=== PATIENT | female | born 1950 | race Caucasian/White ===

== ENCOUNTER 2017-05-29 22:01 | Inpatient (IN) ==
[2017-05-29] MEDS ORDERED: ASPIRIN 325 MG TABLET PO STA (22:28)
[2017-05-29] MEDS ORDERED: MORPHINE 2 MG/1 ML SYRINGE IV STA (22:28)
[2017-05-29] MEDS ORDERED: ONDANSETRON 4 MG/2 ML VIAL IV STA (22:28)
[2017-05-29] MEDS ORDERED: FUROSEMIDE 100 MG/10 ML VIAL IV STA (22:28)
[2017-05-29] MEDS ORDERED: methylPREDNISolone SOD SUC 125 MG/2 ML VIAL IV STA (22:28)
[2017-05-29] MEDS ORDERED: ALBUTEROL 2.5 MG/3 ML NEB RESP TX SCH (22:30)
[2017-05-29] MEDS ORDERED: ONDANSETRON 4 MG/2 ML VIAL ONE (22:38)
[2017-05-29] MEDS ORDERED: methylPREDNISolone SOD SUC 125 MG/2 ML VIAL ONE (22:38)
[2017-05-29] MEDS ORDERED: ASPIRIN 325 MG TABLET ONE (22:38)
[2017-05-29] MEDS ORDERED: FUROSEMIDE 20 MG/2 ML VIAL ONE (22:38)
[2017-05-29] MEDS ORDERED: MORPHINE 2 MG/1 ML SYRINGE ONE (22:39)
[2017-05-29 22:44] LABS: Basophils # 0.1 10*3/uL (0.0-0.2); Basophils % 1.6 % (0.0-0.8); Eosinophils # 0.1 10*3/uL (0.0-0.87); Eosinophils % 1.1 % (0.00-10.9); Hematocrit 30.2 VOL% (35.7-47.0); Hemoglobin 8.3 GM/DL (12.0-16.0); Immature Granulocytes % 0.5 %; Immature Granulocytes Absolute 0.03 #; Lymphocytes # 1.6 10*3/uL (1.4-4.0); Lymphocytes % 27.4 % (21.3-54.2); Mean Corpuscular HGB Conc 27.5 GM/DL (32-36); Mean Corpuscular Hemoglobin 19 PG (27-34); Mean Corpuscular Volume 67.7 FL (87-102); Mean Platelet Volume 9.4 FL (9.6-12.0); Monocytes # 0.4 10*3/uL (0.11-0.8); Monocytes % 7.4 % (1.7-12.7); Neutrophils # 3.5 10*3/uL (1.4-7.4); Platelet Count 345 T/CUMM (130-400); Red Blood Count 4.46 MC/CUMM (3.8-5.5); Red Cell Distribution Width 19.5 % (9.3-17.3); White Blood Count 5.7 T/CUMM (4-12)
[2017-05-29 22:59] LABS: INR 0.9
[2017-05-29 23:02] LABS: Alanine Aminotransferase 11 U/L (13-56); Alkaline Phosphatase 87 U/L (45-117); Aspartate Amino Transferase 15 U/L (0-37); Bilirubin,Total < 0.39 MG/DL (0.2-1.0); Blood Urea Nitrogen 20 MG/DL (7-18); Calcium 8.6 MG/DL (8.5-10.1); Glucose 90 MG/DL (74-106); Osmolality,Calculated 283.3 MOS/KG (273-304); Potassium 3.2 MMOL/L (3.5-5.1); Sodium 141 MMOL/L (136-145); Total Protein 7.1 G/DL (6.4-8.3); Troponin I Only < 0.015 NG/ML (0.00-0.045)
[2017-05-29 23:05] LABS: Apearance,Urine CLEAR (Clear); Bilirubin,Urine Negative (Negative); Blood, Urine Negative (Negative); Glucose,Urine (UA) Negative (Negative); Ketones,Urine Negative (Negative); Mucus,Urine Occasional /LPF (Occasional); Nitrite,Urine Negative (Negative); Protein,Urine Negative; Urine Color Colorless (Yellow); Urine Specific Gravity 1.003 (1.001-1.035); Urine Urobilinogen < 2.0 EU/DL (0.2-1.0); WBC,Urine 1 /HPF (0-6)
[2017-05-29] MEDS: POTASSIUM CHLORIDE 20 MEQ TABLET PO STA (23:28)
[2017-05-29] MEDS ORDERED: POTASSIUM CHLORIDE 20 MEQ TABLET PO ONE (23:28)
[2017-05-29] MEDS ORDERED: POTASSIUM CHLORIDE 20 MEQ PACK ONE (23:38)
[2017-05-29] MEDS ORDERED: DILTIAZEM 100 MG VIAL.ADD IV ONE (23:43)
[2017-05-30] MEDS ORDERED: METOPROLOL TARTRATE 5 MG/5 ML VIAL IV ONE ×2 (00:02→00:37)
[2017-05-30] MEDS ORDERED: LORazepam 2 MG/1 ML VIAL ONE (00:02)
[2017-05-30] MEDS ORDERED: METOPROLOL TARTRATE 5 MG/5 ML VIAL IV STA ×2 (00:09→00:32)
[2017-05-30] MEDS: POTASSIUM CHLORIDE 20 MEQ TABLET PO STA (00:24)
[2017-05-30] MEDS ORDERED: ENOXAPARIN 100 MG/ML SYRINGE SUBCUT STA (00:27)
[2017-05-30] MEDS ORDERED: DILTIAZEM 50 MG/10 ML VIAL IV STA (00:28)
[2017-05-30] MEDS ORDERED: LORazepam 2 MG/1 ML VIAL IV STA (00:28)
[2017-05-30] MEDS ORDERED: DILTIAZEM INJ 100 MG in SODIUM CHLORIDE 0.9% 100 ML IV SCH (00:30)
[2017-05-30] MEDS ORDERED: PANTOPRAZOLE 40 MG VIAL IV STA (00:34)
[2017-05-30] MEDS ORDERED: ENOXAPARIN 80 MG/0.8 ML SYRINGE SUBCUT ONE (01:33)
[2017-05-30] MEDS ORDERED: PANTOPRAZOLE 40 MG VIAL IV ONE (01:33)
[2017-05-30] MEDS ORDERED: ALBUTEROL 2.5 MG/3 ML NEB RESP TX PRN (05:06)
[2017-05-30] MEDS ORDERED: MORPHINE 2 MG/1 ML SYRINGE IV PRN (05:06)
[2017-05-30] MEDS ORDERED: ONDANSETRON 4 MG/2 ML VIAL IV PRN (05:06)
[2017-05-30] MEDS ORDERED: SODIUM CHLORIDE 0.9% 1,000 ML IV SCH (05:06)
[2017-05-30 05:37] LABS: Barbiturates Screen,Urine Negative (Negative); Benzodiazepines Screen,Urine Negative (Negative); Cannabinoid Screen,Urine Negative (Negative); Opiate Screen,Urine Negative (Negative); Phencyclidine Screen,Urine Negative (Negative)
[2017-05-30 06:11] LABS: Risk Ratio 2.39; VLDL CHOLESTEROL 10.4 MG/DL
[2017-05-30] MEDS: LEVOTHYROXINE 175 MCG TABLET PO SCH ×2 (06:14→06:17)
[2017-05-30] MEDS ORDERED: LEVOTHYROXINE 100 MCG TABLET PO SCH (07:00)
[2017-05-30] MEDS ORDERED: POTASSIUM CHLORIDE 20 MEQ PACK PO SCH (09:00)
[2017-05-30] MEDS ORDERED: TOPIRAMATE 150 MG PO SCH (09:00)
[2017-05-30] MEDS ORDERED: LEVOTHYROXINE 175 MCG TABLET PO SCH ×2 (09:14→12:30)
[2017-05-30] MEDS ORDERED: POTASSIUM CHLORIDE 20 MEQ TABLET PO PRN (11:20)
[2017-05-30 11:59] LABS: Calcium 8.1 MG/DL (8.5-10.1); Osmolality,Calculated 286.1 MOS/KG (273-304); Potassium 3.8 MMOL/L (3.5-5.1)
[2017-05-30] MEDS: FOLIC ACID 1 MG TABLET PO SCH (12:22)
[2017-05-30] MEDS: DOCUSATE SODIUM 100 MG CAPSULE PO SCH ×2 (12:22→21:32)
[2017-05-30] MEDS: PANTOPRAZOLE 40 MG TABLET PO SCH (12:22)
[2017-05-30] MEDS: FUROSEMIDE 40 MG TABLET PO SCH (12:22)
[2017-05-30] MEDS: CYANOCOBALAMIN 500 MCG TABLET PO SCH (12:22)
[2017-05-30] MEDS: DICLOFENAC SODIUM 75 MG TABLET PO SCH ×2 (12:26→21:32)
[2017-05-30] MEDS: DILTIAZEM 60 MG TABLET PO SCH ×2 (12:26→21:32)
[2017-05-30] MEDS: ENOXAPARIN 80 MG/0.8 ML SYRINGE SUBCUT SCH ×2 (12:28→21:32)
[2017-05-30] MEDS ORDERED: METOPROLOL TARTRATE 25 MG TABLET PO ONE (15:31)
[2017-05-30] MEDS ORDERED: METOPROLOL TARTRATE 25 MG TABLET PO SCH (21:00)
[2017-05-30] MEDS: ASPIRIN EC 81 MG TABLET PO SCH (21:32)
[2017-05-30] MEDS: POTASSIUM CHLORIDE 20 MEQ PACK PO SCH (21:32)
[2017-05-30] MEDS: DIAZEPAM 5 MG TABLET PO SCH (21:32)
[2017-05-31 05:21] LABS: Basophils % 0.1 % (0.0-0.8); Hemoglobin 7.3 GM/DL (12.0-16.0); Immature Granulocytes % 0.4 %; Immature Granulocytes Absolute 0.03 #; Lymphocytes # 1.5 10*3/uL (1.4-4.0); Lymphocytes % 20.1 % (21.3-54.2); Mean Corpuscular HGB Conc 29.2 GM/DL (32-36); Mean Corpuscular Hemoglobin 19 PG (27-34); Mean Corpuscular Volume 64.8 FL (87-102); Mean Platelet Volume 9.7 FL (9.6-12.0); Monocytes # 0.5 10*3/uL (0.11-0.8); Monocytes % 6.9 % (1.7-12.7); Neutrophils # 5.2 10*3/uL (1.4-7.4); Neutrophils % 72.5 % (38.7-73.9); Platelet Count 377 T/CUMM (130-400); Red Blood Count 3.86 MC/CUMM (3.8-5.5); Red Cell Distribution Width 19.5 % (9.3-17.3); White Blood Count 7.2 T/CUMM (4-12)
[2017-05-31 05:36] LABS: % Iron Saturation 2.1 % (18-50); Calcium 8.4 MG/DL (8.5-10.1); Ferritin 2.3 ng/ml (8-252); Osmolality,Calculated 287.3 MOS/KG (273-304); Potassium 4.9 MMOL/L (3.5-5.1)
[2017-05-31 06:23] LABS: Folate 11.4 NG/ML (5.4-24.0); Vitamin B12 405 PG/ML (211-911)
[2017-05-31 06:24] LABS: Sedimentation Rate-Westergren 9 MM/HR (0-30)
[2017-05-31] MEDS ORDERED: LEVOTHYROXINE 175 MCG TABLET PO SCH (06:30)
[2017-05-31 06:46] LABS: Calcium 8.3 MG/DL (8.5-10.1); Osmolality,Calculated 285.4 MOS/KG (273-304); Potassium 4.9 MMOL/L (3.5-5.1)
[2017-05-31] MEDS ORDERED: METOPROLOL TARTRATE 25 MG TABLET PO SCH (08:13)
[2017-05-31] MEDS ORDERED: RIVAROXABAN 20 MG TABLET PO SCH (09:00)
[2017-05-31] MEDS: POTASSIUM CHLORIDE 20 MEQ PACK PO SCH ×2 (10:08→21:10)
[2017-05-31] MEDS: PANTOPRAZOLE 40 MG TABLET PO SCH (10:18)
[2017-05-31] MEDS: DICLOFENAC SODIUM 75 MG TABLET PO SCH ×2 (10:18→21:13)
[2017-05-31] MEDS: CYANOCOBALAMIN 500 MCG TABLET PO SCH (10:18)
[2017-05-31] MEDS: DOCUSATE SODIUM 100 MG CAPSULE PO SCH ×2 (10:18→21:10)
[2017-05-31] MEDS: FOLIC ACID 1 MG TABLET PO SCH (10:18)
[2017-05-31] MEDS: FUROSEMIDE 40 MG TABLET PO SCH (10:20)
[2017-05-31] MEDS: AMIODARONE 200 MG TABLET PO SCH (10:21)
[2017-05-31 10:26] LABS: Hemoglobin A1 (Alkaline) 97.9 % (96.5-98.5); Hemoglobin A2 (Alkaline) 2.1 % (1.5-3.5)
[2017-05-31] MEDS ORDERED: SODIUM CHLORIDE 0.9% 1,000 ML IV PRN (10:58)
[2017-05-31] MEDS ORDERED: SODIUM PHOSPHATE ENEMA 133 ML BOTTLE RECTAL PRN (12:24)
[2017-05-31] MEDS: DIAZEPAM 5 MG TABLET PO SCH (21:09)
[2017-05-31] MEDS: METOPROLOL TARTRATE 25 MG TABLET PO SCH (21:10)
[2017-05-31] MEDS: ASPIRIN EC 81 MG TABLET PO SCH (21:10)
[2017-06-01 06:07] LABS: Basophils # 0.1 10*3/uL (0.0-0.2); Basophils % 1.1 % (0.0-0.8); Eosinophils # 0.1 10*3/uL (0.0-0.87); Eosinophils % 1.1 % (0.00-10.9); Hematocrit 32.8 VOL% (35.7-47.0); Immature Granulocytes % 0.4 %; Immature Granulocytes Absolute 0.03 #; Lymphocytes # 1.8 10*3/uL (1.4-4.0); Lymphocytes % 25.7 % (21.3-54.2); Mean Corpuscular HGB Conc 29.3 GM/DL (32-36); Mean Corpuscular Hemoglobin 20 PG (27-34); Mean Corpuscular Volume 69.5 FL (87-102); Mean Platelet Volume 9.5 FL (9.6-12.0); Monocytes # 0.4 10*3/uL (0.11-0.8); Monocytes % 6.1 % (1.7-12.7); Neutrophils # 4.6 10*3/uL (1.4-7.4); Neutrophils % 65.6 % (38.7-73.9); Platelet Count 313 T/CUMM (130-400); Red Blood Count 4.72 MC/CUMM (3.8-5.5); Red Cell Distribution Width 21.2 % (9.3-17.3)
[2017-06-01 06:12] LABS: Hemoglobin 9.6 GM/DL (12.0-16.0)
[2017-06-01 06:51] LABS: Osmolality,Calculated 289.1 MOS/KG (273-304); Potassium 4.3 MMOL/L (3.5-5.1)
[2017-06-01] MEDS: LINACLOTIDE 145 MCG CAPSULE PO SCH (09:59)
[2017-06-01] MEDS: CYANOCOBALAMIN 500 MCG TABLET PO SCH (09:59)
[2017-06-01] MEDS: FUROSEMIDE 40 MG TABLET PO SCH (10:00)
[2017-06-01] MEDS: PANTOPRAZOLE 40 MG TABLET PO SCH (10:00)
[2017-06-01] MEDS: FOLIC ACID 1 MG TABLET PO SCH (10:00)
[2017-06-01] MEDS: AMIODARONE 200 MG TABLET PO SCH (10:00)
[2017-06-01] MEDS: METOPROLOL TARTRATE 25 MG TABLET PO SCH ×2 (10:00→21:22)
[2017-06-01] MEDS: DICLOFENAC SODIUM 75 MG TABLET PO SCH (10:00)
[2017-06-01] MEDS: DOCUSATE SODIUM 100 MG CAPSULE PO SCH ×2 (10:00→21:22)
[2017-06-01] MEDS: POTASSIUM CHLORIDE 20 MEQ PACK PO SCH ×2 (10:01→21:21)
[2017-06-01] MEDS: DIAZEPAM 5 MG TABLET PO SCH (21:21)
[2017-06-01] MEDS: ASPIRIN EC 81 MG TABLET PO SCH (21:22)
[2017-06-02 05:17] LABS: Basophils # 0.1 10*3/uL (0.0-0.2); Basophils % 0.8 % (0.0-0.8); Eosinophils # 0.3 10*3/uL (0.0-0.87); Eosinophils % 4.2 % (0.00-10.9); Hematocrit 33.4 VOL% (35.7-47.0); Immature Granulocytes % 0.3 %; Immature Granulocytes Absolute 0.02 #; Lymphocytes # 1.8 10*3/uL (1.4-4.0); Lymphocytes % 30.5 % (21.3-54.2); Mean Corpuscular HGB Conc 29.9 GM/DL (32-36); Mean Corpuscular Hemoglobin 21 PG (27-34); Mean Corpuscular Volume 68.7 FL (87-102); Mean Platelet Volume 9.6 FL (9.6-12.0); Monocytes # 0.5 10*3/uL (0.11-0.8); Monocytes % 8.6 % (1.7-12.7); Neutrophils # 3.3 10*3/uL (1.4-7.4); Neutrophils % 55.6 % (38.7-73.9); Platelet Count 303 T/CUMM (130-400); Red Blood Count 4.86 MC/CUMM (3.8-5.5); Red Cell Distribution Width 21.2 % (9.3-17.3); White Blood Count 5.9 T/CUMM (4-12)
[2017-06-02 05:50] LABS: Calcium 8.4 MG/DL (8.5-10.1); Osmolality,Calculated 287.1 MOS/KG (273-304); Potassium 4.8 MMOL/L (3.5-5.1)
[2017-06-02 05:51] LABS: Hypochromasia 1+; Microcytosis 2+
[2017-06-02 05:52] LABS: Ovalocytes Few; Platelet Estimate Normal
[2017-06-02 05:56] LABS: % Iron Saturation 4.5 % (18-50); Ferritin 3.6 ng/ml (8-252)
[2017-06-02 07:39] LABS: Folate 8.9 NG/ML (5.4-24.0); Vitamin B12 739 PG/ML (211-911)
[2017-06-02 08:07] LABS: Sedimentation Rate-Westergren 9 MM/HR (0-30)
[2017-06-02] MEDS: LINACLOTIDE 145 MCG CAPSULE PO SCH (08:30)
[2017-06-02] MEDS: FUROSEMIDE 40 MG TABLET PO SCH (08:30)
[2017-06-02] MEDS: PANTOPRAZOLE 40 MG TABLET PO SCH (08:31)
[2017-06-02] MEDS: CYANOCOBALAMIN 500 MCG TABLET PO SCH (08:31)
[2017-06-02] MEDS: AMIODARONE 200 MG TABLET PO SCH (08:32)
[2017-06-02] MEDS: METOPROLOL TARTRATE 25 MG TABLET PO SCH ×2 (08:32→21:55)
[2017-06-02] MEDS: DOCUSATE SODIUM 100 MG CAPSULE PO SCH ×2 (08:32→21:55)
[2017-06-02] MEDS: FOLIC ACID 1 MG TABLET PO SCH (08:32)
[2017-06-02] MEDS: POTASSIUM CHLORIDE 20 MEQ PACK PO SCH ×2 (08:35→21:55)
[2017-06-02] MEDS ORDERED: IRON SUCROSE 300 MG in SODIUM CHLORIDE 0.9% 100 ML IV ONE (15:00)
[2017-06-02] MEDS: DIAZEPAM 5 MG TABLET PO SCH (21:53)
[2017-06-02] MEDS: ASPIRIN EC 81 MG TABLET PO SCH (21:54)
[2017-06-03 06:16] LABS: Calcium 8.3 MG/DL (8.5-10.1); Osmolality,Calculated 286.1 MOS/KG (273-304); Potassium 4.1 MMOL/L (3.5-5.1)
[2017-06-03 06:24] LABS: Basophils # 0.1 10*3/uL (0.0-0.2); Basophils % 1.1 % (0.0-0.8); Eosinophils # 0.3 10*3/uL (0.0-0.87); Eosinophils % 4.5 % (0.00-10.9); Hematocrit 35.2 VOL% (35.7-47.0); Hemoglobin 10.3 GM/DL (12.0-16.0); Immature Granulocytes % 1.2 %; Immature Granulocytes Absolute 0.08 #; Lymphocytes # 1.7 10*3/uL (1.4-4.0); Lymphocytes % 26.7 % (21.3-54.2); Mean Corpuscular HGB Conc 29.3 GM/DL (32-36); Mean Corpuscular Hemoglobin 20 PG (27-34); Mean Corpuscular Volume 69.8 FL (87-102); Mean Platelet Volume 9.9 FL (9.6-12.0); Monocytes # 0.7 10*3/uL (0.11-0.8); Monocytes % 10.4 % (1.7-12.7); Neutrophils # 3.6 10*3/uL (1.4-7.4); Neutrophils % 56.1 % (38.7-73.9); Platelet Count 325 T/CUMM (130-400); Red Blood Count 5.04 MC/CUMM (3.8-5.5); Red Cell Distribution Width 21.5 % (9.3-17.3); White Blood Count 6.5 T/CUMM (4-12)
[2017-06-03] MEDS: LINACLOTIDE 145 MCG CAPSULE PO SCH (09:43)
[2017-06-03] MEDS: DOCUSATE SODIUM 100 MG CAPSULE PO SCH ×2 (09:43→21:25)
[2017-06-03] MEDS: METOPROLOL TARTRATE 25 MG TABLET PO SCH ×2 (09:44→21:26)
[2017-06-03] MEDS: FOLIC ACID 1 MG TABLET PO SCH (09:44)
[2017-06-03] MEDS: FUROSEMIDE 40 MG TABLET PO SCH (09:44)
[2017-06-03] MEDS: PANTOPRAZOLE 40 MG TABLET PO SCH (09:44)
[2017-06-03] MEDS: POTASSIUM CHLORIDE 20 MEQ PACK PO SCH ×2 (09:44→21:26)
[2017-06-03] MEDS: CYANOCOBALAMIN 500 MCG TABLET PO SCH (09:44)
[2017-06-03] MEDS: AMIODARONE 200 MG TABLET PO SCH (09:44)
[2017-06-03 10:23] LABS: Hemoglobin A1 (Alkaline) 97.7 % (96.5-98.5); Hemoglobin A2 (Alkaline) 2.3 % (1.5-3.5)
[2017-06-03] MEDS ORDERED: IRON SUCROSE 300 MG in SODIUM CHLORIDE 0.9% 100 ML IV ONE (17:00)
[2017-06-03] MEDS: DIAZEPAM 5 MG TABLET PO SCH (21:26)
[2017-06-03] MEDS: ASPIRIN EC 81 MG TABLET PO SCH (21:26)
[2017-06-04 05:15] LABS: Calcium 8.5 MG/DL (8.5-10.1); Potassium 4.5 MMOL/L (3.5-5.1)
[2017-06-04 05:29] LABS: Basophils # 0.1 10*3/uL (0.0-0.2); Basophils % 1.3 % (0.0-0.8); Eosinophils # 0.2 10*3/uL (0.0-0.87); Eosinophils % 3.5 % (0.00-10.9); Hematocrit 36.8 VOL% (35.7-47.0); Hemoglobin 10.5 GM/DL (12.0-16.0); Immature Granulocytes % 1.1 %; Immature Granulocytes Absolute 0.07 #; Lymphocytes # 1.8 10*3/uL (1.4-4.0); Lymphocytes % 29.3 % (21.3-54.2); Mean Corpuscular HGB Conc 28.5 GM/DL (32-36); Mean Corpuscular Hemoglobin 20 PG (27-34); Mean Corpuscular Volume 71.2 FL (87-102); Monocytes # 0.7 10*3/uL (0.11-0.8); Monocytes % 10.7 % (1.7-12.7); Neutrophils # 3.4 10*3/uL (1.4-7.4); Neutrophils % 54.1 % (38.7-73.9); Platelet Count 334 T/CUMM (130-400); Red Blood Count 5.17 MC/CUMM (3.8-5.5); Red Cell Distribution Width 21.6 % (9.3-17.3); White Blood Count 6.3 T/CUMM (4-12)
[2017-06-04 05:45] LABS: Hypochromasia 1+; Ovalocytes Slight; Platelet Estimate Adequate
[2017-06-04 05:46] LABS: Giant Platelets Few; Microcytosis Slight
[2017-06-04] MEDS: CYANOCOBALAMIN 500 MCG TABLET PO SCH (13:27)
[2017-06-04] MEDS: POTASSIUM CHLORIDE 20 MEQ PACK PO SCH ×2 (13:27→20:41)
[2017-06-04] MEDS: LINACLOTIDE 145 MCG CAPSULE PO SCH (13:27)
[2017-06-04] MEDS: DOCUSATE SODIUM 100 MG CAPSULE PO SCH ×2 (13:27→20:42)
[2017-06-04] MEDS: FUROSEMIDE 40 MG TABLET PO SCH (13:27)
[2017-06-04] MEDS: AMIODARONE 200 MG TABLET PO SCH (13:27)
[2017-06-04] MEDS: PANTOPRAZOLE 40 MG TABLET PO SCH (13:28)
[2017-06-04] MEDS: METOPROLOL TARTRATE 25 MG TABLET PO SCH ×2 (13:28→20:42)
[2017-06-04] MEDS: FOLIC ACID 1 MG TABLET PO SCH (13:28)
[2017-06-04] MEDS ORDERED: IRON SUCROSE 300 MG in SODIUM CHLORIDE 0.9% 100 ML IV ONE (17:00)
[2017-06-04] MEDS: DIAZEPAM 5 MG TABLET PO SCH (20:41)
[2017-06-04] MEDS: ASPIRIN EC 81 MG TABLET PO SCH (20:42)
[2017-06-05 06:44] LABS: Basophils # 0.1 10*3/uL (0.0-0.2); Basophils % 1.1 % (0.0-0.8); Calcium 8.4 MG/DL (8.5-10.1); Eosinophils # 0.2 10*3/uL (0.0-0.87); Eosinophils % 2.3 % (0.00-10.9); Hematocrit 35.5 VOL% (35.7-47.0); Immature Granulocytes % 1.5 %; Immature Granulocytes Absolute 0.11 #; Lymphocytes # 2.3 10*3/uL (1.4-4.0); Lymphocytes % 30.4 % (21.3-54.2); Mean Corpuscular HGB Conc 28.2 GM/DL (32-36); Mean Corpuscular Hemoglobin 20 PG (27-34); Mean Corpuscular Volume 71.3 FL (87-102); Monocytes # 0.8 10*3/uL (0.11-0.8); Monocytes % 10.7 % (1.7-12.7); Neutrophils # 4.1 10*3/uL (1.4-7.4); Osmolality,Calculated 287.1 MOS/KG (273-304); Platelet Count 289 T/CUMM (130-400); Potassium 4.1 MMOL/L (3.5-5.1); Red Blood Count 4.98 MC/CUMM (3.8-5.5); Red Cell Distribution Width 22.1 % (9.3-17.3); White Blood Count 7.5 T/CUMM (4-12)
[2017-06-05 06:46] LABS: Elliptocytes Few
[2017-06-05 06:47] LABS: Hypochromasia 1+; Microcytosis 1+; Platelet Estimate Normal; Spherocytes Few
[2017-06-05] MEDS: LINACLOTIDE 145 MCG CAPSULE PO SCH (09:06)
[2017-06-05] MEDS: PANTOPRAZOLE 40 MG TABLET PO SCH (09:07)
[2017-06-05] MEDS: CYANOCOBALAMIN 500 MCG TABLET PO SCH (09:07)
[2017-06-05] MEDS: AMIODARONE 200 MG TABLET PO SCH (09:08)
[2017-06-05] MEDS: METOPROLOL TARTRATE 25 MG TABLET PO SCH ×2 (09:08→21:16)
[2017-06-05] MEDS: FUROSEMIDE 40 MG TABLET PO SCH (09:09)
[2017-06-05] MEDS: FOLIC ACID 1 MG TABLET PO SCH (09:09)
[2017-06-05] MEDS: DOCUSATE SODIUM 100 MG CAPSULE PO SCH ×2 (09:09→21:16)
[2017-06-05] MEDS: POTASSIUM CHLORIDE 20 MEQ PACK PO SCH ×2 (09:09→21:15)
[2017-06-05] MEDS ORDERED: BISACODYL 5 MG TABLET PO ONE (10:26)
[2017-06-05] MEDS ORDERED: PROPOFOL 200 MG/20 ML VIAL IV ONE (11:11)
[2017-06-05] MEDS ORDERED: LIDOCAINE 2% 5 ML VIAL ONE (11:11)
[2017-06-05] MEDS ORDERED: POLYETHYLENE GLYCOL POWDER 255 GM BOTTLE PO ONE (12:00)
[2017-06-05] MEDS: ASPIRIN EC 81 MG TABLET PO SCH (21:16)
[2017-06-05] MEDS: DIAZEPAM 5 MG TABLET PO SCH (21:17)
[2017-06-06] MEDS ORDERED: MAGNESIUM CITRATE 300 ML BOTTLE PO ONE (05:00)
[2017-06-06] MEDS ORDERED: POLYETHYLENE GLYCOL POWDER 255 GM BOTTLE PO ONE (11:53)
[2017-06-06] MEDS: LINACLOTIDE 145 MCG CAPSULE PO SCH (13:02)
[2017-06-06] MEDS: FOLIC ACID 1 MG TABLET PO SCH (13:02)
[2017-06-06] MEDS: AMIODARONE 200 MG TABLET PO SCH (13:02)
[2017-06-06] MEDS: CYANOCOBALAMIN 500 MCG TABLET PO SCH (13:03)
[2017-06-06] MEDS: FUROSEMIDE 40 MG TABLET PO SCH (13:04)
[2017-06-06] MEDS: PANTOPRAZOLE 40 MG TABLET PO SCH (13:04)
[2017-06-06] MEDS: DOCUSATE SODIUM 100 MG CAPSULE PO SCH ×2 (13:05→22:17)
[2017-06-06] MEDS: METOPROLOL TARTRATE 25 MG TABLET PO SCH ×2 (13:05→22:17)
[2017-06-06] MEDS: POTASSIUM CHLORIDE 20 MEQ PACK PO SCH ×2 (13:08→22:16)
[2017-06-06] MEDS: DIAZEPAM 5 MG TABLET PO SCH (22:17)
[2017-06-06] MEDS: ASPIRIN EC 81 MG TABLET PO SCH (22:17)
[2017-06-06] MEDS ORDERED: ACETAMINOPHEN 325 MG TABLET PO PRN (23:04)
[2017-06-07] MEDS ORDERED: LIDOCAINE 2% 5 ML VIAL ONE (12:43)
[2017-06-07] MEDS ORDERED: PROPOFOL 200 MG/20 ML VIAL IV ONE (12:43)
[2017-06-07] MEDS: CYANOCOBALAMIN 500 MCG TABLET PO SCH (14:04)
[2017-06-07] MEDS: POTASSIUM CHLORIDE 20 MEQ PACK PO SCH (14:04)
[2017-06-07] MEDS: AMIODARONE 200 MG TABLET PO SCH (14:04)
[2017-06-07] MEDS: PANTOPRAZOLE 40 MG TABLET PO SCH (14:04)
[2017-06-07] MEDS: FOLIC ACID 1 MG TABLET PO SCH (14:05)
[2017-06-07] MEDS: METOPROLOL TARTRATE 25 MG TABLET PO SCH (14:06)
[2017-06-07] MEDS: FUROSEMIDE 40 MG TABLET PO SCH (14:06)
[2017-06-07] MEDS: DOCUSATE SODIUM 100 MG CAPSULE PO SCH (14:06)
[2017-06-07] MEDS: LINACLOTIDE 145 MCG CAPSULE PO SCH (14:06)
[2017-06-07 17:12] VITALS: BP 140/80
[2017-06-08] MEDS ORDERED: LEVOTHYROXINE 100 MCG TABLET PO SCH (06:30)
== END 2017-06-07 15:13 | disposition home or self-care (01) | DRG 310 ==
LOC: EDUNIT# → N.ED 22:01 → N.EDINP 05-30 01:59 → N.TELEN 05-30 03:46
PROVIDERS: ADMIT Hospitalist; ATTEND Hospitalist

== ENCOUNTER 2018-04-12 17:44 | Inpatient (IN) ==
[2018-04-12] MEDS ORDERED: DILTIAZEM 50 MG/10 ML VIAL IV STA (18:41)
[2018-04-12] MEDS ORDERED: DILTIAZEM 25 MG/5 ML VIAL IV ONE (18:45)
[2018-04-12 18:53] LABS: Basophils # 0.1 10*3/uL (0.0-0.2); Basophils % 1.3 % (0.0-0.8); Eosinophils # 0.1 10*3/uL (0.0-0.87); Eosinophils % 1.1 % (0.00-10.9); Hematocrit 41.6 VOL% (35.7-47.0); Hemoglobin 13.1 GM/DL (12.0-16.0); Immature Granulocytes % 0.5 %; Immature Granulocytes Absolute 0.03 #; Lymphocytes # 1.4 10*3/uL (1.4-4.0); Lymphocytes % 23.3 % (21.3-54.2); Mean Corpuscular HGB Conc 31.5 GM/DL (32-36); Mean Corpuscular Hemoglobin 28 PG (27-34); Mean Corpuscular Volume 87.9 FL (87-102); Mean Platelet Volume 9.8 FL (9.6-12.0); Monocytes # 0.4 10*3/uL (0.11-0.8); Monocytes % 6.4 % (1.7-12.7); Neutrophils # 4.1 10*3/uL (1.4-7.4); Neutrophils % 67.4 % (38.7-73.9); Platelet Count 255 T/CUMM (130-400); Red Blood Count 4.73 MC/CUMM (3.8-5.5); Red Cell Distribution Width 13.6 % (9.3-17.3); White Blood Count 6.1 T/CUMM (4-12)
[2018-04-12] MEDS ORDERED: DILTIAZEM INJ 100 MG in SODIUM CHLORIDE 0.9% 100 ML IV SCH (19:00)
[2018-04-12] MEDS ORDERED: ASPIRIN 325 MG TABLET PO STA (19:02)
[2018-04-12] MEDS ORDERED: dilTIAZem Drip 125 MG/125 ML PREMIX IV ONE (19:05)
[2018-04-12 19:12] LABS: Alanine Aminotransferase 15 U/L (13-56); Albumin 3.7 G/DL (3.4-5.0); Alkaline Phosphatase 100 U/L (45-117); Aspartate Amino Transferase 13 U/L (0-37); Blood Urea Nitrogen 22 MG/DL (7-18); Calcium 8.5 MG/DL (8.5-10.1); Glucose 119 MG/DL (74-106); Osmolality,Calculated 284.3 MOS/KG (273-304); Potassium 3.6 MMOL/L (3.5-5.1); Sodium 141 MMOL/L (136-145); Troponin I < 0.015 NG/ML (0.00-0.045)
[2018-04-12] MEDS: dilTIAZem Drip 125 MG/125 ML PREMIX IV SCH (19:29)
[2018-04-13 06:29] LABS: Troponin I < 0.015 NG/ML (0.00-0.045)
[2018-04-13] MEDS ORDERED: LIDOCAINE 5% PATCH TRANSDERM PRN (11:07)
[2018-04-13] MEDS: FAMOTIDINE 20 MG TABLET PO SCH (12:33)
[2018-04-13] MEDS: RIVAROXABAN 20 MG TABLET PO SCH (12:34)
[2018-04-13] MEDS: PANTOPRAZOLE 40 MG TABLET PO SCH (12:34)
[2018-04-13] MEDS: AMIODARONE 200 MG TABLET PO SCH ×2 (15:52→21:49)
[2018-04-13] MEDS: dilTIAZem Drip 125 MG/125 ML PREMIX IV SCH (15:54)
[2018-04-13] MEDS: DIAZEPAM 5 MG TABLET PO SCH (21:48)
[2018-04-13] MEDS: POTASSIUM CHLORIDE 20 MEQ PACK PO SCH (21:49)
[2018-04-13] MEDS: TOPIRAMATE 25 MG TABLET PO SCH (21:49)
[2018-04-13] MEDS: ASPIRIN EC 81 MG TABLET PO SCH (21:49)
[2018-04-14] MEDS: FOLIC ACID 1 MG TABLET PO SCH (08:48)
[2018-04-14] MEDS: LEVOTHYROXINE 137 MCG TABLET PO SCH ×2 (08:48→08:54)
[2018-04-14] MEDS: POTASSIUM CHLORIDE 20 MEQ PACK PO SCH ×2 (08:49→22:20)
[2018-04-14] MEDS: CYANOCOBALAMIN 500 MCG TABLET PO SCH (08:49)
[2018-04-14] MEDS: PANTOPRAZOLE 40 MG TABLET PO SCH (08:49)
[2018-04-14] MEDS: FUROSEMIDE 40 MG TABLET PO SCH (08:50)
[2018-04-14] MEDS: RIVAROXABAN 20 MG TABLET PO SCH (08:50)
[2018-04-14] MEDS: LOSARTAN 50 MG TABLET PO SCH (08:50)
[2018-04-14] MEDS: DICLOFENAC SODIUM 50 MG TABLET PO SCH (08:50)
[2018-04-14] MEDS: AMIODARONE 200 MG TABLET PO SCH ×3 (08:50→22:20)
[2018-04-14] MEDS: TOPIRAMATE 25 MG TABLET PO SCH ×2 (08:51→22:20)
[2018-04-14] MEDS: FAMOTIDINE 20 MG TABLET PO SCH (08:51)
[2018-04-14] MEDS: MULTIVITAMIN (CENTRUM) TABLET PO SCH (08:51)
[2018-04-14] MEDS ORDERED: Dextroamphetamine/Amphetamine [Adderall Xr 20 Mg Capsule] 20 MG) PO SCH (09:00)
[2018-04-14] MEDS ORDERED: DILTIAZEM 50 MG/10 ML VIAL IV ONE (17:12)
[2018-04-14] MEDS ORDERED: dilTIAZem Drip 125 MG/125 ML PREMIX IV SCH (19:30)
[2018-04-14] MEDS: ASPIRIN EC 81 MG TABLET PO SCH (22:20)
[2018-04-14] MEDS: DIAZEPAM 5 MG TABLET PO SCH (22:20)
[2018-04-15 04:44] LABS: Calcium 8.2 MG/DL (8.5-10.1); Osmolality,Calculated 284.1 MOS/KG (273-304); Potassium 3.8 MMOL/L (3.5-5.1)
[2018-04-15] MEDS: LEVOTHYROXINE 137 MCG TABLET PO SCH (07:12)
[2018-04-15 09:06] LABS: Free T4 (Free Thyroxine) 1.24 NG/DL (0.76-1.46); Thyroid Stimulating Hormone 1.3 uIU/ml (0.358-3.74)
[2018-04-15] MEDS: PANTOPRAZOLE 40 MG TABLET PO SCH (10:08)
[2018-04-15] MEDS: CYANOCOBALAMIN 500 MCG TABLET PO SCH (10:09)
[2018-04-15] MEDS: FOLIC ACID 1 MG TABLET PO SCH (10:09)
[2018-04-15] MEDS: AMIODARONE 200 MG TABLET PO SCH ×3 (10:09→21:21)
[2018-04-15] MEDS: MULTIVITAMIN (CENTRUM) TABLET PO SCH (10:09)
[2018-04-15] MEDS: TOPIRAMATE 25 MG TABLET PO SCH ×2 (10:10→21:21)
[2018-04-15] MEDS: FAMOTIDINE 20 MG TABLET PO SCH (10:10)
[2018-04-15] MEDS: RIVAROXABAN 20 MG TABLET PO SCH (10:10)
[2018-04-15] MEDS: FUROSEMIDE 40 MG TABLET PO SCH (10:10)
[2018-04-15] MEDS: LOSARTAN 50 MG TABLET PO SCH (10:10)
[2018-04-15] MEDS: POTASSIUM CHLORIDE 20 MEQ PACK PO SCH ×2 (10:11→21:21)
[2018-04-15] MEDS: DICLOFENAC SODIUM 50 MG TABLET PO SCH (13:50)
[2018-04-15] MEDS: DILTIAZEM CD 120 MG CAPSULE PO SCH ×2 (16:04→21:22)
[2018-04-15] MEDS: DIAZEPAM 5 MG TABLET PO SCH (21:21)
[2018-04-15] MEDS: ASPIRIN EC 81 MG TABLET PO SCH (21:22)
[2018-04-16] MEDS: PANTOPRAZOLE 40 MG TABLET PO SCH (07:54)
[2018-04-16] MEDS: LEVOTHYROXINE 137 MCG TABLET PO SCH (07:54)
[2018-04-16] MEDS ORDERED: ONDANSETRON 4 MG TABLET PO PRN (09:31)
[2018-04-16] MEDS: DICLOFENAC SODIUM 50 MG TABLET PO SCH (10:02)
[2018-04-16] MEDS: CYANOCOBALAMIN 500 MCG TABLET PO SCH (10:03)
[2018-04-16] MEDS: FAMOTIDINE 20 MG TABLET PO SCH (10:03)
[2018-04-16] MEDS: POTASSIUM CHLORIDE 20 MEQ PACK PO SCH ×2 (10:04→20:25)
[2018-04-16] MEDS: RIVAROXABAN 20 MG TABLET PO SCH (10:04)
[2018-04-16] MEDS: LOSARTAN 50 MG TABLET PO SCH (10:05)
[2018-04-16] MEDS: AMIODARONE 200 MG TABLET PO SCH ×3 (10:05→20:25)
[2018-04-16] MEDS: TOPIRAMATE 25 MG TABLET PO SCH ×2 (10:05→20:25)
[2018-04-16] MEDS: MULTIVITAMIN (CENTRUM) TABLET PO SCH (10:05)
[2018-04-16] MEDS: DILTIAZEM CD 120 MG CAPSULE PO SCH ×2 (10:06→20:25)
[2018-04-16] MEDS: FUROSEMIDE 40 MG TABLET PO SCH (10:07)
[2018-04-16] MEDS: FOLIC ACID 1 MG TABLET PO SCH (10:16)
[2018-04-16] MEDS ORDERED: SODIUM CHLORIDE 0.9% 1,000 ML IV SCH (15:00)
[2018-04-16] MEDS: ASPIRIN EC 81 MG TABLET PO SCH (20:25)
[2018-04-16] MEDS: DIAZEPAM 5 MG TABLET PO SCH (20:25)
[2018-04-17 05:34] LABS: Basophils # 0.1 10*3/uL (0.0-0.2); Basophils % 1.1 % (0.0-0.8); Eosinophils # 0.3 10*3/uL (0.0-0.87); Eosinophils % 3.8 % (0.00-10.9); Hematocrit 41.9 VOL% (35.7-47.0); Hemoglobin 13.3 GM/DL (12.0-16.0); Immature Granulocytes % 0.7 %; Immature Granulocytes Absolute 0.05 #; Lymphocytes # 1.7 10*3/uL (1.4-4.0); Lymphocytes % 23.2 % (21.3-54.2); Mean Corpuscular HGB Conc 31.7 GM/DL (32-36); Mean Corpuscular Hemoglobin 28 PG (27-34); Mean Corpuscular Volume 87.3 FL (87-102); Mean Platelet Volume 9.6 FL (9.6-12.0); Monocytes # 0.6 10*3/uL (0.11-0.8); Monocytes % 8.2 % (1.7-12.7); Neutrophils # 4.5 10*3/uL (1.4-7.4); Platelet Count 267 T/CUMM (130-400); Red Cell Distribution Width 13.9 % (9.3-17.3); White Blood Count 7.1 T/CUMM (4-12)
[2018-04-17 05:41] LABS: Calcium 8.6 MG/DL (8.5-10.1); Osmolality,Calculated 285.4 MOS/KG (273-304); Potassium 3.6 MMOL/L (3.5-5.1)
[2018-04-17] MEDS: LEVOTHYROXINE 137 MCG TABLET PO SCH (06:14)
[2018-04-17] MEDS ORDERED: SODIUM CHLORIDE 0.45% 1,000 ML IV SCH (07:00)
[2018-04-17] MEDS ORDERED: MIDAZOLAM 2 MG/2 ML VIAL IV ONE (07:40)
[2018-04-17] MEDS ORDERED: MEPERIDINE 25 MG/1 ML VIAL ONE (07:48)
[2018-04-17] MEDS ORDERED: MIDAZOLAM 10 MG/2 ML VIAL ONE ×2 (07:48→08:20)
[2018-04-17] MEDS ORDERED: METOPROLOL SUCCINATE XL 100 MG TABLET PO SCH (09:00)
[2018-04-17] MEDS: DILTIAZEM CD 120 MG CAPSULE PO SCH (11:27)
[2018-04-17] MEDS: TOPIRAMATE 25 MG TABLET PO SCH (11:27)
[2018-04-17] MEDS: PANTOPRAZOLE 40 MG TABLET PO SCH (11:27)
[2018-04-17] MEDS: MULTIVITAMIN (CENTRUM) TABLET PO SCH (11:27)
[2018-04-17] MEDS: FOLIC ACID 1 MG TABLET PO SCH (11:27)
[2018-04-17] MEDS: FAMOTIDINE 20 MG TABLET PO SCH (11:27)
[2018-04-17] MEDS: FUROSEMIDE 40 MG TABLET PO SCH (11:27)
[2018-04-17] MEDS: POTASSIUM CHLORIDE 20 MEQ PACK PO SCH (11:28)
[2018-04-17] MEDS: DICLOFENAC SODIUM 50 MG TABLET PO SCH (11:28)
[2018-04-17] MEDS: CYANOCOBALAMIN 500 MCG TABLET PO SCH (11:28)
[2018-04-17] MEDS: RIVAROXABAN 20 MG TABLET PO SCH (11:28)
[2018-04-17 12:06] VITALS: BP 99/62
== END 2018-04-17 14:55 | disposition home or self-care (01) | DRG 310 ==
LOC: N.ED 17:44 → N.EDINP 18:59 → N.TELEN 22:08
PROVIDERS: ADMIT Internal Medicine Cardiovascular Disease; ATTEND Internal Medicine Cardiovascular Disease

== ENCOUNTER 2018-07-02 09:00 | Inpatient (IN) ==
[2018-07-02] MEDS ORDERED: DILTIAZEM 25 MG/5 ML VIAL IV ONE (09:34)
[2018-07-02] MEDS ORDERED: DILTIAZEM 50 MG/10 ML VIAL IV STA (09:35)
[2018-07-02] MEDS ORDERED: ENOXAPARIN 100 MG/ML SYRINGE SUBCUT STA (09:35)
[2018-07-02 09:53] LABS: Basophils # 0.1 10*3/uL (0.0-0.2); Basophils % 1.1 % (0.0-0.8); Eosinophils # 0.2 10*3/uL (0.0-0.87); Eosinophils % 2.3 % (0.00-10.9); Hematocrit 41.4 VOL% (35.7-47.0); Hemoglobin 12.7 GM/DL (12.0-16.0); Immature Granulocytes % 0.5 %; Immature Granulocytes Absolute 0.03 #; Lymphocytes # 1.2 10*3/uL (1.4-4.0); Lymphocytes % 18.6 % (21.3-54.2); Mean Corpuscular HGB Conc 30.7 GM/DL (32-36); Mean Corpuscular Volume 87.2 FL (87-102); Mean Platelet Volume 9.7 FL (9.6-12.0); Monocytes % 7.5 % (1.7-12.7); Platelet Count 214 T/CUMM (130-400); Red Blood Count 4.75 MC/CUMM (3.8-5.5); Red Cell Distribution Width 14.5 % (9.3-17.3); White Blood Count 6.4 T/CUMM (4-12)
[2018-07-02 10:03] LABS: INR 0.9; PT Patient Result 10.2 SECS
[2018-07-02 10:14] LABS: Albumin 3.8 G/DL (3.4-5.0); Bilirubin,Total 0.8 MG/DL (0.2-1.0); Calcium 8.5 MG/DL (8.5-10.1); Total Protein 6.5 G/DL (6.4-8.3)
[2018-07-02] MEDS: dilTIAZem Drip 125 MG/125 ML PREMIX IV SCH ×2 (10:40→19:36)
[2018-07-02 11:18] LABS: Apearance,Urine CLEAR (Clear); Bacteria,Urine Occasional /HPF (Few); Bilirubin,Urine Negative (Negative); Blood, Urine Small mg/dL (Negative); Glucose,Urine (UA) Negative (Negative); Hyaline Casts,Urine 1 /LPF (0-3); Ketones,Urine Negative (Negative); Mucus,Urine Occasional /LPF (Occasional); Nitrite,Urine Negative (Negative); Protein,Urine Negative; RBC,Urine 2 /HPF (0-4); Squamous Epithelial Cell,Urine Occasional /HPF (0-10); Urine Color Yellow (Yellow); Urine Specific Gravity 1.013 (1.001-1.035); Urine Urobilinogen < 2.0 EU/DL (0.2-1.0); WBC,Urine 1 /HPF (0-6)
[2018-07-02] MEDS ORDERED: ACETAMINOPHEN 325 MG TABLET PO PRN (12:41)
[2018-07-02] MEDS ORDERED: LACTULOSE 20 GM/30 ML UDCUP PO PRN (12:41)
[2018-07-02] MEDS ORDERED: DOCUSATE SODIUM 100 MG CAPSULE PO PRN (12:41)
[2018-07-02] MEDS ORDERED: dilTIAZem Drip 125 MG/125 ML PREMIX IV SCH (13:00)
[2018-07-02 13:20] LABS: Risk Ratio 2.71; Thyroid Stimulating Hormone 0.023 uIU/ml (0.358-3.74); VLDL CHOLESTEROL 30.2 MG/DL
[2018-07-02] MEDS ORDERED: AMIODARONE 200 MG TABLET PO SCH (15:00)
[2018-07-02] MEDS: FUROSEMIDE 40 MG/4 ML VIAL IV SCH (16:45)
[2018-07-02] MEDS: DIAZEPAM 5 MG TABLET PO SCH (21:38)
[2018-07-02] MEDS: ASPIRIN EC 81 MG TABLET PO SCH (21:38)
[2018-07-02] MEDS: TOPIRAMATE 25 MG TABLET PO SCH (21:38)
[2018-07-02] MEDS: AMIODARONE 200 MG TABLET PO SCH (21:38)
[2018-07-03] MEDS: dilTIAZem Drip 125 MG/125 ML PREMIX IV SCH ×2 (05:20→11:56)
[2018-07-03 05:43] LABS: Basophils # 0.1 10*3/uL (0.0-0.2); Basophils % 1.1 % (0.0-0.8); Eosinophils # 0.2 10*3/uL (0.0-0.87); Eosinophils % 4.3 % (0.00-10.9); Hemoglobin 11.8 GM/DL (12.0-16.0); Immature Granulocytes % 0.2 %; Immature Granulocytes Absolute 0.01 #; Lymphocytes % 21.2 % (21.3-54.2); Mean Corpuscular HGB Conc 31.1 GM/DL (32-36); Mean Corpuscular Volume 85.6 FL (87-102); Mean Platelet Volume 9.9 FL (9.6-12.0); Monocytes % 10.9 % (1.7-12.7); Neutrophils % 62.3 % (38.7-73.9); Platelet Count 195 T/CUMM (130-400); Red Blood Count 4.44 MC/CUMM (3.8-5.5); Red Cell Distribution Width 14.5 % (9.3-17.3); White Blood Count 4.7 T/CUMM (4-12)
[2018-07-03 05:59] LABS: Calcium 8.2 MG/DL (8.5-10.1); Osmolality,Calculated 282.1 MOS/KG (273-304)
[2018-07-03] MEDS ORDERED: LEVOTHYROXINE 137 MCG TABLET PO SCH (07:00)
[2018-07-03] MEDS: RIVAROXABAN 20 MG TABLET PO SCH (07:48)
[2018-07-03] MEDS: POTASSIUM CHLORIDE 20 MEQ TABLET PO PRN ×3 (07:48→13:26)
[2018-07-03] MEDS ORDERED: POTASSIUM CHLORIDE 20 MEQ TABLET PO ONE (07:58)
[2018-07-03] MEDS ORDERED: POTASSIUM CHLORIDE 20 MEQ PACK PO SCH (09:00)
[2018-07-03] MEDS ORDERED: METOPROLOL TARTRATE 25 MG TABLET PO SCH (09:00)
[2018-07-03] MEDS ORDERED: FUROSEMIDE 40 MG TABLET PO SCH (09:00)
[2018-07-03] MEDS: CYANOCOBALAMIN 500 MCG TABLET PO SCH (09:23)
[2018-07-03] MEDS: MULTIVITAMIN (CENTRUM) TABLET PO SCH (09:24)
[2018-07-03] MEDS: LIOTHYRONINE 25 MCG TABLET PO SCH (09:25)
[2018-07-03] MEDS: TOPIRAMATE 25 MG TABLET PO SCH ×2 (09:25→22:38)
[2018-07-03] MEDS: FAMOTIDINE 20 MG TABLET PO SCH (09:25)
[2018-07-03] MEDS: DICLOFENAC SODIUM 50 MG TABLET PO SCH (09:25)
[2018-07-03] MEDS: FOLIC ACID 1 MG TABLET PO SCH (09:26)
[2018-07-03] MEDS: AMIODARONE 200 MG TABLET PO SCH ×2 (09:26→22:37)
[2018-07-03] MEDS: LOSARTAN 50 MG TABLET PO SCH (09:26)
[2018-07-03] MEDS: LIDOCAINE 5% PATCH TRANSDERM PRN (09:26)
[2018-07-03] MEDS: PANTOPRAZOLE 40 MG TABLET PO SCH (09:26)
[2018-07-03] MEDS: FUROSEMIDE 40 MG/4 ML VIAL IV SCH (09:30)
[2018-07-03] MEDS: LINACLOTIDE 145 MCG CAPSULE PO SCH (09:39)
[2018-07-03] MEDS ORDERED: ENOXAPARIN 40 MG/0.4 ML SYRINGE SUBCUT SCH (10:00)
[2018-07-03] MEDS: POTASSIUM CHLORIDE 20 MEQ TABLET PO SCH ×2 (10:12→22:41)
[2018-07-03] MEDS ORDERED: MAGNESIUM HYDROXIDE SUSP 30 ML UDCUP PO PRN (13:41)
[2018-07-03] MEDS ORDERED: MAGNESIUM SULF RIDER 2 GM in PREMIX 1 EACH IV PRN (18:35)
[2018-07-03] MEDS ORDERED: MAGNESIUM SULF RIDER 4 GM in PREMIX 1 EACH IV PRN (18:35)
[2018-07-03] MEDS: ASPIRIN EC 81 MG TABLET PO SCH (22:37)
[2018-07-03] MEDS: METOPROLOL TARTRATE 25 MG TABLET PO SCH (22:37)
[2018-07-03] MEDS: DIAZEPAM 5 MG TABLET PO SCH (22:38)
[2018-07-04 06:15] LABS: Calcium 8.1 MG/DL (8.5-10.1); Osmolality,Calculated 290.7 MOS/KG (273-304)
[2018-07-04] MEDS: CYANOCOBALAMIN 500 MCG TABLET PO SCH (08:42)
[2018-07-04] MEDS: DICLOFENAC SODIUM 50 MG TABLET PO SCH (08:42)
[2018-07-04] MEDS: RIVAROXABAN 20 MG TABLET PO SCH (08:43)
[2018-07-04] MEDS: LIOTHYRONINE 25 MCG TABLET PO SCH (08:43)
[2018-07-04] MEDS: LINACLOTIDE 145 MCG CAPSULE PO SCH (08:43)
[2018-07-04] MEDS: FOLIC ACID 1 MG TABLET PO SCH (08:43)
[2018-07-04] MEDS: MULTIVITAMIN (CENTRUM) TABLET PO SCH (08:43)
[2018-07-04] MEDS: METOPROLOL TARTRATE 25 MG TABLET PO SCH ×2 (08:43→21:47)
[2018-07-04] MEDS: TOPIRAMATE 25 MG TABLET PO SCH ×2 (08:43→21:47)
[2018-07-04] MEDS: FAMOTIDINE 20 MG TABLET PO SCH (08:48)
[2018-07-04] MEDS: LOSARTAN 50 MG TABLET PO SCH (08:48)
[2018-07-04] MEDS: POTASSIUM CHLORIDE 20 MEQ TABLET PO SCH ×2 (08:48→21:47)
[2018-07-04] MEDS: FUROSEMIDE 40 MG/4 ML VIAL IV SCH (08:49)
[2018-07-04] MEDS: AMIODARONE 200 MG TABLET PO SCH ×2 (08:49→21:52)
[2018-07-04] MEDS: PANTOPRAZOLE 40 MG TABLET PO SCH (08:49)
[2018-07-04] MEDS: dilTIAZem Drip 125 MG/125 ML PREMIX IV SCH (12:12)
[2018-07-04] MEDS: DIAZEPAM 5 MG TABLET PO SCH (21:47)
[2018-07-04] MEDS: ASPIRIN EC 81 MG TABLET PO SCH (21:47)
[2018-07-04] MEDS: LIDOCAINE 5% PATCH TRANSDERM PRN (21:49)
[2018-07-05 05:07] LABS: Basophils # 0.1 10*3/uL (0.0-0.2); Eosinophils # 0.3 10*3/uL (0.0-0.87); Eosinophils % 5.7 % (0.00-10.9); Hematocrit 39.2 VOL% (35.7-47.0); Hemoglobin 11.9 GM/DL (12.0-16.0); Immature Granulocytes % 0.3 %; Immature Granulocytes Absolute 0.02 #; Lymphocytes # 1.8 10*3/uL (1.4-4.0); Mean Corpuscular HGB Conc 30.4 GM/DL (32-36); Mean Corpuscular Volume 87.9 FL (87-102); Mean Platelet Volume 9.9 FL (9.6-12.0); Monocytes % 8.9 % (1.7-12.7); Neutrophils % 54.1 % (38.7-73.9); Platelet Count 226 T/CUMM (130-400); Red Blood Count 4.46 MC/CUMM (3.8-5.5); Red Cell Distribution Width 14.6 % (9.3-17.3); White Blood Count 5.9 T/CUMM (4-12)
[2018-07-05 05:50] LABS: Calcium 8.3 MG/DL (8.5-10.1); Osmolality,Calculated 286.1 MOS/KG (273-304)
[2018-07-05] MEDS ORDERED: FLUMAZENIL 0.5 MG/5 ML VIAL IV ONE (10:19)
[2018-07-05] MEDS ORDERED: MIDAZOLAM 10 MG/2 ML VIAL ONE (10:19)
[2018-07-05] MEDS ORDERED: MIDAZOLAM 10 MG/2 ML VIAL IV ONE (10:39)
[2018-07-05] MEDS ORDERED: fentaNYL 100 MCG/2 ML VIAL IV ONE (10:58)
[2018-07-05] MEDS: dilTIAZem Drip 125 MG/125 ML PREMIX IV SCH (12:08)
[2018-07-05] MEDS: MULTIVITAMIN (CENTRUM) TABLET PO SCH (12:51)
[2018-07-05] MEDS: CYANOCOBALAMIN 500 MCG TABLET PO SCH (12:51)
[2018-07-05] MEDS: FOLIC ACID 1 MG TABLET PO SCH (12:52)
[2018-07-05] MEDS: LIOTHYRONINE 25 MCG TABLET PO SCH (12:52)
[2018-07-05] MEDS: PANTOPRAZOLE 40 MG TABLET PO SCH (12:53)
[2018-07-05] MEDS: TOPIRAMATE 25 MG TABLET PO SCH ×2 (12:54→21:20)
[2018-07-05] MEDS: RIVAROXABAN 20 MG TABLET PO SCH (12:55)
[2018-07-05] MEDS: DICLOFENAC SODIUM 50 MG TABLET PO SCH (12:55)
[2018-07-05] MEDS: LINACLOTIDE 145 MCG CAPSULE PO SCH (12:56)
[2018-07-05] MEDS: POTASSIUM CHLORIDE 20 MEQ TABLET PO SCH ×2 (13:04→21:20)
[2018-07-05] MEDS: FAMOTIDINE 20 MG TABLET PO SCH (13:05)
[2018-07-05] MEDS: LOSARTAN 50 MG TABLET PO SCH (13:06)
[2018-07-05] MEDS: FUROSEMIDE 40 MG/4 ML VIAL IV SCH (13:06)
[2018-07-05] MEDS: AMIODARONE 200 MG TABLET PO SCH (14:22)
[2018-07-05] MEDS: METOPROLOL TARTRATE 25 MG TABLET PO SCH (14:23)
[2018-07-05] MEDS: DIAZEPAM 5 MG TABLET PO SCH (21:19)
[2018-07-05] MEDS: ASPIRIN EC 81 MG TABLET PO SCH (21:20)
[2018-07-05] MEDS: METOPROLOL TARTRATE 50 MG TABLET PO SCH (21:23)
[2018-07-06 05:01] LABS: Basophils # 0.1 10*3/uL (0.0-0.2); Basophils % 1.1 % (0.0-0.8); Eosinophils # 0.3 10*3/uL (0.0-0.87); Eosinophils % 5.3 % (0.00-10.9); Hematocrit 41.4 VOL% (35.7-47.0); Hemoglobin 12.7 GM/DL (12.0-16.0); Immature Granulocytes % 0.4 %; Immature Granulocytes Absolute 0.02 #; Lymphocytes # 1.6 10*3/uL (1.4-4.0); Mean Corpuscular HGB Conc 30.7 GM/DL (32-36); Mean Corpuscular Volume 87.2 FL (87-102); Monocytes % 9.5 % (1.7-12.7); Neutrophils % 53.7 % (38.7-73.9); Platelet Count 251 T/CUMM (130-400); Red Blood Count 4.75 MC/CUMM (3.8-5.5); Red Cell Distribution Width 14.7 % (9.3-17.3); White Blood Count 5.3 T/CUMM (4-12)
[2018-07-06 05:19] LABS: Calcium 8.3 MG/DL (8.5-10.1); Osmolality,Calculated 286.3 MOS/KG (273-304)
[2018-07-06] MEDS: FUROSEMIDE 40 MG/4 ML VIAL IV SCH (09:01)
[2018-07-06] MEDS: LINACLOTIDE 145 MCG CAPSULE PO SCH (09:03)
[2018-07-06] MEDS: LIOTHYRONINE 25 MCG TABLET PO SCH (09:03)
[2018-07-06] MEDS: FOLIC ACID 1 MG TABLET PO SCH (09:03)
[2018-07-06] MEDS: TOPIRAMATE 25 MG TABLET PO SCH ×2 (09:04→22:07)
[2018-07-06] MEDS: CYANOCOBALAMIN 500 MCG TABLET PO SCH (09:04)
[2018-07-06] MEDS: MULTIVITAMIN (CENTRUM) TABLET PO SCH (09:04)
[2018-07-06] MEDS: RIVAROXABAN 20 MG TABLET PO SCH (09:04)
[2018-07-06] MEDS: POTASSIUM CHLORIDE 20 MEQ TABLET PO SCH ×2 (09:04→22:07)
[2018-07-06] MEDS: PANTOPRAZOLE 40 MG TABLET PO SCH (09:05)
[2018-07-06] MEDS: METOPROLOL TARTRATE 50 MG TABLET PO SCH ×2 (09:05→22:07)
[2018-07-06] MEDS: LOSARTAN 50 MG TABLET PO SCH (09:05)
[2018-07-06] MEDS: FAMOTIDINE 20 MG TABLET PO SCH (09:05)
[2018-07-06] MEDS: DICLOFENAC SODIUM 50 MG TABLET PO SCH (09:39)
[2018-07-06] MEDS: dilTIAZem Drip 125 MG/125 ML PREMIX IV SCH (11:17)
[2018-07-06] MEDS ORDERED: LINACLOTIDE 145 MCG CAPSULE PO SCH (20:31)
[2018-07-06] MEDS: DIAZEPAM 5 MG TABLET PO SCH (22:05)
[2018-07-06] MEDS: ASPIRIN EC 81 MG TABLET PO SCH (22:07)
[2018-07-07 04:40] LABS: Basophils # 0.1 10*3/uL (0.0-0.2); Basophils % 1.2 % (0.0-0.8); Eosinophils # 0.3 10*3/uL (0.0-0.87); Eosinophils % 5.1 % (0.00-10.9); Hemoglobin 13.3 GM/DL (12.0-16.0); Immature Granulocytes Absolute 0.06 #; Lymphocytes % 32.8 % (21.3-54.2); Mean Corpuscular HGB Conc 30.9 GM/DL (32-36); Mean Corpuscular Volume 87.4 FL (87-102); Monocytes % 8.8 % (1.7-12.7); Neutrophils % 51.1 % (38.7-73.9); Platelet Count 265 T/CUMM (130-400); Red Blood Count 4.92 MC/CUMM (3.8-5.5); Red Cell Distribution Width 14.8 % (9.3-17.3); White Blood Count 5.9 T/CUMM (4-12)
[2018-07-07 05:13] LABS: Calcium 8.5 MG/DL (8.5-10.1); Osmolality,Calculated 289.1 MOS/KG (273-304)
[2018-07-07] MEDS: POTASSIUM CHLORIDE 20 MEQ TABLET PO SCH (08:41)
[2018-07-07] MEDS: CYANOCOBALAMIN 500 MCG TABLET PO SCH (08:41)
[2018-07-07] MEDS: METOPROLOL TARTRATE 50 MG TABLET PO SCH (08:42)
[2018-07-07] MEDS: DICLOFENAC SODIUM 50 MG TABLET PO SCH (08:42)
[2018-07-07] MEDS: MULTIVITAMIN (CENTRUM) TABLET PO SCH (08:42)
[2018-07-07] MEDS: TOPIRAMATE 25 MG TABLET PO SCH (08:42)
[2018-07-07] MEDS: PANTOPRAZOLE 40 MG TABLET PO SCH (08:42)
[2018-07-07] MEDS: LIOTHYRONINE 25 MCG TABLET PO SCH (08:42)
[2018-07-07] MEDS: LOSARTAN 50 MG TABLET PO SCH (08:42)
[2018-07-07] MEDS: FOLIC ACID 1 MG TABLET PO SCH (08:42)
[2018-07-07] MEDS: RIVAROXABAN 20 MG TABLET PO SCH (08:42)
[2018-07-07] MEDS: FAMOTIDINE 20 MG TABLET PO SCH (08:42)
[2018-07-07] MEDS: dilTIAZem Drip 125 MG/125 ML PREMIX IV SCH (09:01)
[2018-07-07 12:33] VITALS: BP 130/67
[2018-07-07] MEDS ORDERED: FUROSEMIDE 40 MG TABLET PO SCH (16:00)
== END 2018-07-07 13:29 | disposition swing bed (61) ==
LOC: N.ED 09:00 → N.EDINP 12:41 → N.TELEN 14:39
PROVIDERS: ADMIT Internal Medicine; ATTEND Internal Medicine

== ENCOUNTER 2018-12-03 18:59 | Inpatient (IN) ==
[2018-12-03] MEDS ORDERED: DILTIAZEM 50 MG/10 ML VIAL IV STA (20:10)
[2018-12-03] MEDS ORDERED: ONDANSETRON 4 MG/2 ML VIAL IV STA (20:10)
[2018-12-03] MEDS ORDERED: SODIUM CHLORIDE 0.9% 500 ML IV STA (20:10)
[2018-12-03] MEDS ORDERED: KETOROLAC 30 MG/1 ML VIAL IV STA (20:10)
[2018-12-03 20:24] LABS: Basophils # 0.1 10*3/uL (0.0-0.2); Basophils % 0.7 % (0.0-0.8); Eosinophils # 0.2 10*3/uL (0.0-0.87); Eosinophils % 1.2 % (0.00-10.9); Hematocrit 43.5 VOL% (35.7-47.0); Immature Granulocytes % 0.7 %; Immature Granulocytes Absolute 0.09 #; Lymphocytes # 1.7 10*3/uL (1.4-4.0); Mean Corpuscular HGB Conc 32.2 GM/DL (32-36); Mean Corpuscular Volume 89.9 FL (87-102); Mean Platelet Volume 10.5 FL (9.6-12.0); Monocytes % 6.9 % (1.7-12.7); Neutrophils % 76.5 % (38.7-73.9); Platelet Count 226 T/CUMM (130-400); Red Blood Count 4.84 MC/CUMM (3.8-5.5); Red Cell Distribution Width 15.7 % (9.3-17.3); White Blood Count 12.3 T/CUMM (4-12)
[2018-12-03 20:27] LABS: PT Patient Result 10.6 SECS (9.6-12.2)
[2018-12-03 20:38] LABS: Alanine Aminotransferase 39 U/L (13-56); Albumin 3.7 G/DL (3.4-5.0); Alkaline Phosphatase 106 U/L (45-117); Aspartate Amino Transferase 74 U/L (0-37); Blood Urea Nitrogen 23 MG/DL (7-18); Calcium 8.6 MG/DL (8.5-10.1); Estimated Glom Filtration Rate 70 ML/MIN; Glucose 98 MG/DL (74-106); Osmolality,Calculated 286.1 MOS/KG (273-304); Total Protein 6.8 G/DL (6.4-8.3)
[2018-12-03] MEDS: dilTIAZem Drip 125 MG/125 ML PREMIX IV SCH (21:00)
[2018-12-03 21:21] LABS: Apearance,Urine CLEAR (Clear); Bacteria,Urine Occasional /HPF (Few); Bilirubin,Urine Negative (Negative); Blood, Urine Negative (Negative); Glucose,Urine (UA) Negative (Negative); Ketones,Urine Negative (Negative); Mucus,Urine Occasional /LPF (Occasional); Nitrite,Urine Negative (Negative); Protein,Urine Negative; RBC,Urine 2 /HPF (0-4); Squamous Epithelial Cell,Urine Occasional /HPF (0-10); Urine Color Yellow (Yellow); Urine Urobilinogen < 2.0 EU/DL (0.2-1.0); WBC,Urine <1 /HPF (0-6)
[2018-12-03 21:27] LABS: Barbiturates Screen,Urine Negative (Negative); Benzodiazepines Screen,Urine Positive (Negative); Cannabinoid Screen,Urine Negative (Negative); Opiate Screen,Urine Positive (Negative); Phencyclidine Screen,Urine Negative (Negative)
[2018-12-04] MEDS ORDERED: ONDANSETRON 4 MG/2 ML VIAL IV PRN (03:43)
[2018-12-04] MEDS ORDERED: DOCUSATE SODIUM 100 MG CAPSULE PO PRN (03:43)
[2018-12-04] MEDS ORDERED: ACETAMINOPHEN 325 MG TABLET PO PRN (03:43)
[2018-12-04 04:45] LABS: Basophils % 0.5 % (0.0-0.8); Eosinophils # 0.1 10*3/uL (0.0-0.87); Eosinophils % 1.5 % (0.00-10.9); Hematocrit 39.5 VOL% (35.7-47.0); Hemoglobin 12.4 GM/DL (12.0-16.0); Immature Granulocytes % 0.7 %; Immature Granulocytes Absolute 0.05 #; Lymphocytes # 1.3 10*3/uL (1.4-4.0); Lymphocytes % 17.7 % (21.3-54.2); Mean Corpuscular HGB Conc 31.4 GM/DL (32-36); Mean Platelet Volume 10.7 FL (9.6-12.0); Monocytes % 8.2 % (1.7-12.7); Neutrophils % 71.4 % (38.7-73.9); Platelet Count 209 T/CUMM (130-400); Red Blood Count 4.39 MC/CUMM (3.8-5.5); Red Cell Distribution Width 15.5 % (9.3-17.3); White Blood Count 7.6 T/CUMM (4-12)
[2018-12-04 05:15] LABS: Blood Urea Nitrogen 20 MG/DL (7-18); Calcium 8.6 MG/DL (8.5-10.1); Estimated Glom Filtration Rate 80 ML/MIN; Glucose 100 MG/DL (74-106); Thyroid Stimulating Hormone < 0.005 uIU/ml (0.358-3.74)
[2018-12-04] MEDS ORDERED: RIVAROXABAN 20 MG TABLET PO SCH (08:00)
[2018-12-04] MEDS: METOPROLOL TARTRATE 50 MG TABLET PO SCH ×2 (08:09→21:03)
[2018-12-04] MEDS: POTASSIUM CHLORIDE 20 MEQ TABLET PO PRN ×3 (12:44→17:31)
[2018-12-04] MEDS: dilTIAZem Drip 125 MG/125 ML PREMIX IV SCH (14:23)
[2018-12-04] MEDS: TOPIRAMATE 100 MG TABLET PO SCH (21:01)
[2018-12-04] MEDS: ASPIRIN EC 81 MG TABLET PO SCH (21:01)
[2018-12-05] MEDS ORDERED: POTASSIUM CHLORIDE RIDER 10 MEQ in PREMIX 1 EACH IV PRN (08:02)
[2018-12-05] MEDS ORDERED: LIDOCAINE 1% 20 ML VIAL ONE (08:25)
[2018-12-05] MEDS ORDERED: HEPARIN/NACL 0.9% 2 UNITS/ML 1,000 ML IV ONE (08:25)
[2018-12-05] MEDS ORDERED: FAMOTIDINE 20 MG/2 ML VIAL IV ONE (08:43)
[2018-12-05] MEDS ORDERED: ceFAZolin 1,000 MG VIAL ONE (08:49)
[2018-12-05] MEDS ORDERED: HEPARIN/NACL 0.9% 2 UNITS/ML 500 ML IV ONE (08:53)
[2018-12-05] MEDS ORDERED: METOPROLOL TARTRATE 50 MG TABLET PO SCH (09:00)
[2018-12-05] MEDS ORDERED: HEPARIN 10,000 UNIT/10 ML VIAL ONE (11:22)
[2018-12-05] MEDS ORDERED: ONDANSETRON 4 MG/2 ML VIAL ONE (11:22)
[2018-12-05] MEDS ORDERED: SEVOFLURANE 1 UNIT/15 MINUTE INH ONE (11:22)
[2018-12-05] MEDS ORDERED: MIDAZOLAM 2 MG/2 ML VIAL ONE (11:22)
[2018-12-05] MEDS ORDERED: LIDOCAINE 2% 5 ML VIAL ONE (11:22)
[2018-12-05] MEDS ORDERED: diphenhydrAMINE 50 MG/1 ML VIAL ONE (11:22)
[2018-12-05] MEDS ORDERED: PROPOFOL 200 MG/20 ML VIAL IV ONE (11:22)
[2018-12-05] MEDS ORDERED: methylPREDNISolone SOD SUC 125 MG/2 ML VIAL ONE (11:23)
[2018-12-05] MEDS ORDERED: SODIUM CHLORIDE 0.9% 1,000 ML IV ONE (11:23)
[2018-12-05] MEDS: TOPIRAMATE 100 MG TABLET PO SCH ×2 (13:05→20:21)
[2018-12-05] MEDS: POTASSIUM CHLORIDE 20 MEQ TABLET PO PRN (13:06)
[2018-12-05] MEDS: METOPROLOL TARTRATE 50 MG TABLET PO SCH (13:09)
[2018-12-05] MEDS: ASPIRIN EC 81 MG TABLET PO SCH (20:21)
[2018-12-06 03:00] LABS: Basophils % 0.1 % (0.0-0.8); Hematocrit 38.7 VOL% (35.7-47.0); Hemoglobin 11.8 GM/DL (12.0-16.0); Immature Granulocytes % 1.1 %; Immature Granulocytes Absolute 0.08 #; Lymphocytes # 0.5 10*3/uL (1.4-4.0); Lymphocytes % 6.9 % (21.3-54.2); Mean Corpuscular HGB Conc 30.5 GM/DL (32-36); Mean Corpuscular Volume 93.5 FL (87-102); Mean Platelet Volume 10.3 FL (9.6-12.0); Monocytes % 4.8 % (1.7-12.7); Neutrophils % 87.1 % (38.7-73.9); Platelet Count 234 T/CUMM (130-400); Red Blood Count 4.14 MC/CUMM (3.8-5.5); Red Cell Distribution Width 15.9 % (9.3-17.3); White Blood Count 7.1 T/CUMM (4-12)
[2018-12-06 03:29] LABS: Calcium 8.4 MG/DL (8.5-10.1); Osmolality,Calculated 288.8 MOS/KG (273-304)
[2018-12-06] MEDS: METOPROLOL TARTRATE 50 MG TABLET PO SCH ×2 (08:11→20:17)
[2018-12-06] MEDS: TOPIRAMATE 100 MG TABLET PO SCH ×2 (08:11→20:16)
[2018-12-06] MEDS: ASPIRIN EC 81 MG TABLET PO SCH (20:17)
[2018-12-07] MEDS: METOPROLOL TARTRATE 50 MG TABLET PO SCH (08:22)
[2018-12-07] MEDS: TOPIRAMATE 100 MG TABLET PO SCH (08:22)
[2018-12-07 12:31] VITALS: BP 105/66
== END 2018-12-07 14:35 | disposition home health service (06) | DRG 229 ==
LOC: N.ED 18:59 → N.EDINP 18:59 → N.TELEN 12-04 02:09
PROVIDERS: ADMIT Internal Medicine; ATTEND Internal Medicine
PROC: CLMICRA (2018-12-05 08:45)

== ENCOUNTER 2020-03-26 20:40 | Inpatient (IN) ==
[2020-03-26] MEDS ORDERED: KETOROLAC 30 MG/1 ML VIAL IV STA (21:15)
[2020-03-26] MEDS ORDERED: ONDANSETRON 4 MG/2 ML VIAL IV STA (21:15)
[2020-03-26 21:40] LABS: Bilirubin,Urine Negative (Negative); Blood, Urine Negative (Negative); Glucose,Urine (UA) Negative (Negative); Ketones,Urine Negative (Negative); Mucus,Urine Occasional /LPF (Occasional); Nitrite,Urine Negative (Negative); Protein,Urine Negative; RBC,Urine 1 /HPF (0-4); Squamous Epithelial Cell,Urine Occasional /HPF (0-10); Urine Appearance CLEAR (Clear); Urine Color Yellow (Yellow); Urine Specific Gravity 1.013 (1.001-1.035); Urine Urobilinogen < 2.0 EU/DL (0.2-1.0); WBC,Urine 1 /HPF (0-6)
[2020-03-26 21:55] LABS: Basophils # 0.1 10*3/uL (0.0-0.2); Basophils % 0.5 % (0.0-0.8); Eosinophils % 0.2 % (0.00-10.9); Hematocrit 43.7 VOL% (35.7-47.0); Hemoglobin 14.4 GM/DL (12.0-16.0); Immature Granulocytes % 0.6 %; Immature Granulocytes Absolute 0.06 #; Lymphocytes # 0.9 10*3/uL (1.4-4.0); Lymphocytes % 8.7 % (21.3-54.2); Mean Corpuscular Volume 86.9 FL (87-102); Mean Platelet Volume 9.5 FL (9.6-12.0); Monocytes % 4.5 % (1.7-12.7); Neutrophils % 85.5 % (38.7-73.9); Platelet Count 201 T/CUMM (130-400); Red Blood Count 5.03 MC/CUMM (3.8-5.5); White Blood Count 10.2 T/CUMM (4-12)
[2020-03-26 22:11] LABS: Calcium 8.3 MG/DL (8.5-10.1); Osmolality,Calculated 283.3 MOS/KG (273-304)
[2020-03-26 22:15] LABS: INR 1.1; PT Patient Result 11.5 SECS (9.8-11.9); Partial Thromboplastin Time 27.8 SECS (23.9-33.8)
[2020-03-26] MEDS ORDERED: DEXTROSE 50% 25 GM/50 ML VIAL IV PRN (22:38)
[2020-03-26] MEDS ORDERED: POTASSIUM CHLORIDE 20 MEQ TABLET PO STA (22:38)
[2020-03-26] MEDS ORDERED: GLUCAGON 1 MG VIAL IM PRN (22:38)
[2020-03-26] MEDS ORDERED: ONDANSETRON 4 MG/2 ML VIAL IV PRN (22:38)
[2020-03-27] MEDS ORDERED: DOCUSATE SODIUM 100 MG CAPSULE PO PRN (00:17)
[2020-03-27] MEDS ORDERED: LACTULOSE 20 GM/30 ML UDCUP PO PRN (00:17)
[2020-03-27] MEDS ORDERED: LIDOCAINE 5% PATCH TRANSDERM PRN (00:17)
[2020-03-27] MEDS: DIAZEPAM 5 MG TABLET PO SCH ×2 (01:23→20:59)
[2020-03-27] MEDS: MORPHINE 4 MG/1 ML VIAL IV PRN (05:13)
[2020-03-27] MEDS: LEVOTHYROXINE 125 MCG TABLET PO SCH ×2 (05:36→17:15)
[2020-03-27 06:27] LABS: Basophils # 0.1 10*3/uL (0.0-0.2); Basophils % 0.7 % (0.0-0.8); Eosinophils % 0.1 % (0.00-10.9); Hematocrit 42.2 VOL% (35.7-47.0); Hemoglobin 13.7 GM/DL (12.0-16.0); Immature Granulocytes % 0.4 %; Immature Granulocytes Absolute 0.03 #; Lymphocytes # 1.6 10*3/uL (1.4-4.0); Mean Corpuscular HGB Conc 32.5 GM/DL (32-36); Mean Corpuscular Volume 87.7 FL (87-102); Mean Platelet Volume 10.2 FL (9.6-12.0); Monocytes % 7.5 % (1.7-12.7); Neutrophils % 71.3 % (38.7-73.9); Platelet Count 199 T/CUMM (130-400); Red Blood Count 4.81 MC/CUMM (3.8-5.5); Red Cell Distribution Width 14.1 % (9.3-17.3)
[2020-03-27 07:22] LABS: Albumin 3.3 G/DL (3.4-5.0); Bilirubin,Total 0.5 MG/DL (0.2-1.0); Calcium 8.9 MG/DL (8.5-10.1); Osmolality,Calculated 285.1 MOS/KG (273-304); Total Protein 6.5 G/DL (6.4-8.3)
[2020-03-27] MEDS ORDERED: VANCOMYCIN INJ 1,000 MG in SODIUM CHLORIDE 0.9% 250 ML IV ONE (08:00)
[2020-03-27] MEDS ORDERED: ceFAZolin 1,000 MG in SYRINGE 1 EACH IV ONE (08:00)
[2020-03-27] MEDS ORDERED: BACITRACIN OINT 0.9 GM PACK TOP ONE (08:39)
[2020-03-27] MEDS ORDERED: AMPHETAMINE PO SCH (09:00)
[2020-03-27] MEDS ORDERED: ESOMEPRAZOLE MAGNESIUM 40 MG PO SCH (09:00)
[2020-03-27] MEDS ORDERED: DEXTROAMPHETAMINE PO SCH (09:00)
[2020-03-27] MEDS ORDERED: propofoL 200 MG/20 ML VIAL IV ONE (09:44)
[2020-03-27] MEDS ORDERED: ROCURONIUM 50 MG/5 ML VIAL IV ONE (09:44)
[2020-03-27] MEDS ORDERED: fentaNYL 250 MCG/5 ML VIAL ONE (09:44)
[2020-03-27] MEDS ORDERED: ETOMIDATE 40 MG/20 ML VIAL IV ONE (09:44)
[2020-03-27] MEDS ORDERED: MIDAZOLAM 2 MG/2 ML VIAL ONE (09:44)
[2020-03-27] MEDS ORDERED: LIDOCAINE 2% 5 ML VIAL ONE (09:44)
[2020-03-27] MEDS ORDERED: PHENYLEPHRINE 1 MG/10 ML SYRINGE IV ONE ×4 (09:44→11:50)
[2020-03-27] MEDS ORDERED: PROMETHAZINE INJ 25 MG in SODIUM CHLORIDE 0.9% 50 ML IV PRN (10:02)
[2020-03-27] MEDS ORDERED: ONDANSETRON 4 MG/2 ML VIAL IV PRN (10:02)
[2020-03-27] MEDS ORDERED: diphenhydrAMINE 50 MG/1 ML VIAL IV PRN (10:02)
[2020-03-27] MEDS ORDERED: HYDROmorphone 2 MG/1 ML VIAL IV PRN (10:02)
[2020-03-27] MEDS ORDERED: TRANEXAMIC ACID 1,000 MG/10 ML VIAL ONE (10:16)
[2020-03-27] MEDS ORDERED: SEVOFLURANE 1 UNIT/15 MINUTE INH ONE (10:16)
[2020-03-27] MEDS ORDERED: LACTATED RINGERS 1,000 ML IV ONE (11:22)
[2020-03-27] MEDS ORDERED: SUCCINYLCHOLINE 200 MG/10 ML VIAL ONE (11:24)
[2020-03-27] MEDS ORDERED: MAGNESIUM HYDROXIDE SUSP 30 ML UDCUP PO PRN (11:29)
[2020-03-27] MEDS ORDERED: MORPHINE 4 MG/1 ML VIAL IV PRN (11:29)
[2020-03-27] MEDS ORDERED: fentaNYL 100 MCG/2 ML VIAL ONE (11:32)
[2020-03-27] MEDS ORDERED: KETOROLAC 30 MG/1 ML VIAL ONE (11:46)
[2020-03-27] MEDS: LIOTHYRONINE 25 MCG TABLET PO SCH (15:06)
[2020-03-27] MEDS: FUROSEMIDE 40 MG TABLET PO SCH ×2 (15:06→17:05)
[2020-03-27] MEDS: FOLIC ACID 1 MG TABLET PO SCH (15:07)
[2020-03-27] MEDS: TOPIRAMATE 100 MG TABLET PO SCH ×2 (15:07→21:00)
[2020-03-27] MEDS: BENZONATATE 100 MG CAPSULE PO SCH ×2 (15:07→20:59)
[2020-03-27] MEDS: POTASSIUM CHLORIDE 20 MEQ PACK PO SCH ×2 (15:07→20:59)
[2020-03-27] MEDS: POTASSIUM CHLORIDE INJ 20 MEQ in LACTATED RINGERS 1,000 ML IV SCH ×2 (15:07→17:07)
[2020-03-27] MEDS: PANTOPRAZOLE 40 MG TABLET PO SCH (15:07)
[2020-03-27] MEDS: CYANOCOBALAMIN 500 MCG TABLET PO SCH (15:08)
[2020-03-27] MEDS: ceFAZolin 1,000 MG in SYRINGE 1 EACH IV SCH ×2 (17:10→23:02)
[2020-03-27] MEDS: ROSUVASTATIN 20 MG TABLET PO SCH (20:58)
[2020-03-28] MEDS: MORPHINE 4 MG/1 ML VIAL IV PRN ×3 (03:12→22:28)
[2020-03-28] MEDS: LEVOTHYROXINE 125 MCG TABLET PO SCH (05:13)
[2020-03-28] MEDS: POTASSIUM CHLORIDE INJ 20 MEQ in LACTATED RINGERS 1,000 ML IV SCH (06:10)
[2020-03-28 06:20] LABS: Basophils # 0.1 10*3/uL (0.0-0.2); Basophils % 0.8 % (0.0-0.8); Eosinophils # 0.2 10*3/uL (0.0-0.87); Eosinophils % 2.9 % (0.00-10.9); Hematocrit 39.1 VOL% (35.7-47.0); Hemoglobin 12.4 GM/DL (12.0-16.0); Immature Granulocytes % 0.3 %; Immature Granulocytes Absolute 0.02 #; Lymphocytes # 0.9 10*3/uL (1.4-4.0); Lymphocytes % 14.1 % (21.3-54.2); Mean Corpuscular HGB Conc 31.7 GM/DL (32-36); Mean Corpuscular Volume 89.9 FL (87-102); Mean Platelet Volume 10.4 FL (9.6-12.0); Monocytes % 6.6 % (1.7-12.7); Neutrophils % 75.3 % (38.7-73.9); Platelet Count 158 T/CUMM (130-400); Red Blood Count 4.35 MC/CUMM (3.8-5.5); Red Cell Distribution Width 13.9 % (9.3-17.3); White Blood Count 6.2 T/CUMM (4-12)
[2020-03-28 06:48] LABS: Calcium 7.9 MG/DL (8.5-10.1); Osmolality,Calculated 286.8 MOS/KG (273-304)
[2020-03-28] MEDS: POTASSIUM CHLORIDE 20 MEQ PACK PO SCH ×2 (09:00→20:49)
[2020-03-28] MEDS: TOPIRAMATE 100 MG TABLET PO SCH ×2 (09:00→20:48)
[2020-03-28] MEDS: BENZONATATE 100 MG CAPSULE PO SCH ×2 (09:01→20:48)
[2020-03-28] MEDS: PANTOPRAZOLE 40 MG TABLET PO SCH (09:01)
[2020-03-28] MEDS: CYANOCOBALAMIN 500 MCG TABLET PO SCH (09:01)
[2020-03-28] MEDS: FOLIC ACID 1 MG TABLET PO SCH (09:01)
[2020-03-28] MEDS: FUROSEMIDE 40 MG TABLET PO SCH ×2 (09:01→19:45)
[2020-03-28] MEDS: LIOTHYRONINE 25 MCG TABLET PO SCH (09:04)
[2020-03-28] MEDS: APIXABAN 2.5 MG TABLET PO SCH ×2 (09:05→20:49)
[2020-03-28] MEDS: DIAZEPAM 5 MG TABLET PO SCH (20:48)
[2020-03-28] MEDS: ASPIRIN EC 81 MG TABLET PO SCH (20:48)
[2020-03-28] MEDS: ROSUVASTATIN 20 MG TABLET PO SCH (20:48)
[2020-03-29] MEDS ORDERED: SODIUM CHLORIDE 0.9% 250 ML IV ONE ×2 (00:10→00:54)
[2020-03-29] MEDS: LEVOTHYROXINE 125 MCG TABLET PO SCH (05:08)
[2020-03-29 05:12] LABS: Basophils % 0.5 % (0.0-0.8); Eosinophils # 0.3 10*3/uL (0.0-0.87); Eosinophils % 3.2 % (0.00-10.9); Immature Granulocytes % 0.6 %; Immature Granulocytes Absolute 0.05 #; Lymphocytes # 1.3 10*3/uL (1.4-4.0); Lymphocytes % 16.6 % (21.3-54.2); Mean Corpuscular HGB Conc 31.6 GM/DL (32-36); Mean Corpuscular Volume 90.5 FL (87-102); Mean Platelet Volume 10.3 FL (9.6-12.0); Monocytes % 8.8 % (1.7-12.7); Neutrophils % 70.3 % (38.7-73.9); Platelet Count 154 T/CUMM (130-400); Red Cell Distribution Width 14.3 % (9.3-17.3); White Blood Count 7.8 T/CUMM (4-12)
[2020-03-29 05:47] LABS: Calcium 8.2 MG/DL (8.5-10.1); Osmolality,Calculated 282.3 MOS/KG (273-304); Thyroid Stimulating Hormone 0.021 uIU/ml (0.358-3.74)
[2020-03-29] MEDS: CYANOCOBALAMIN 500 MCG TABLET PO SCH (10:32)
[2020-03-29] MEDS: POTASSIUM CHLORIDE 20 MEQ PACK PO SCH ×2 (10:32→20:37)
[2020-03-29] MEDS: FOLIC ACID 1 MG TABLET PO SCH (10:32)
[2020-03-29] MEDS: BENZONATATE 100 MG CAPSULE PO SCH ×2 (10:32→20:36)
[2020-03-29] MEDS: LIOTHYRONINE 25 MCG TABLET PO SCH (10:32)
[2020-03-29] MEDS: PANTOPRAZOLE 40 MG TABLET PO SCH (10:33)
[2020-03-29] MEDS: FUROSEMIDE 40 MG TABLET PO SCH ×2 (10:33→16:30)
[2020-03-29] MEDS: TOPIRAMATE 100 MG TABLET PO SCH ×2 (10:33→20:37)
[2020-03-29] MEDS: APIXABAN 2.5 MG TABLET PO SCH ×2 (10:33→20:36)
[2020-03-29] MEDS: ROSUVASTATIN 20 MG TABLET PO SCH (20:36)
[2020-03-29] MEDS: ASPIRIN EC 81 MG TABLET PO SCH (20:36)
[2020-03-29] MEDS: DIAZEPAM 5 MG TABLET PO SCH (20:36)
[2020-03-29] MEDS: ACETAMINOPHEN 325 MG TABLET PO SCH (20:37)
[2020-03-30] MEDS: LEVOTHYROXINE 125 MCG TABLET PO SCH (05:00)
[2020-03-30 06:44] LABS: Basophils % 0.4 % (0.0-0.8); Eosinophils # 0.3 10*3/uL (0.0-0.87); Eosinophils % 3.7 % (0.00-10.9); Hematocrit 37.8 VOL% (35.7-47.0); Immature Granulocytes % 0.8 %; Immature Granulocytes Absolute 0.06 #; Lymphocytes # 1.1 10*3/uL (1.4-4.0); Lymphocytes % 15.8 % (21.3-54.2); Mean Corpuscular HGB Conc 32.3 GM/DL (32-36); Mean Corpuscular Volume 89.6 FL (87-102); Mean Platelet Volume 11.1 FL (9.6-12.0); Monocytes % 8.9 % (1.7-12.7); Neutrophils % 70.4 % (38.7-73.9); Platelet Count 182 T/CUMM (130-400); Red Blood Count 4.22 MC/CUMM (3.8-5.5); Red Cell Distribution Width 14.3 % (9.3-17.3); White Blood Count 7.1 T/CUMM (4-12)
[2020-03-30 06:46] LABS: Hemoglobin 12.2 GM/DL (12.0-16.0)
[2020-03-30] MEDS: POTASSIUM CHLORIDE 20 MEQ PACK PO SCH (08:28)
[2020-03-30] MEDS: BENZONATATE 100 MG CAPSULE PO SCH (08:28)
[2020-03-30] MEDS: FUROSEMIDE 40 MG TABLET PO SCH (08:29)
[2020-03-30] MEDS: APIXABAN 2.5 MG TABLET PO SCH (08:29)
[2020-03-30] MEDS: PANTOPRAZOLE 40 MG TABLET PO SCH (08:29)
[2020-03-30] MEDS: FOLIC ACID 1 MG TABLET PO SCH (08:29)
[2020-03-30] MEDS: TOPIRAMATE 100 MG TABLET PO SCH (08:29)
[2020-03-30] MEDS: ACETAMINOPHEN 325 MG TABLET PO SCH (08:29)
[2020-03-30] MEDS: CYANOCOBALAMIN 500 MCG TABLET PO SCH (08:29)
[2020-03-30] MEDS ORDERED: amLODIPine 5 MG TABLET PO SCH (10:30)
[2020-03-30 11:39] VITALS: BP 117/67
== END 2020-03-30 12:20 | disposition swing bed (61) | DRG 522 ==
LOC: EDUNIT# → N.ED 20:40 → N.EDINP 22:38 → SUATTDRO 22:38 → N.3E 03-27 00:02 → N.EDINP 03-27 00:19 → N.3E 03-27 00:20
PROVIDERS: ADMIT Emergency Medicine; ATTEND Internal Medicine